=== PATIENT | male | born 1980 | race Caucasian/White ===

== ENCOUNTER 2017-01-03 16:48 | Emergency (ER) | payer OTHER ==
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
== END 2017-01-03 18:09 | disposition disaster alternative care site (69) ==
LOC: GMED 16:48
DX: S93.402A Sprain of unspecified ligament of left ankle, initial encounter (principal); V13.4XXA Pedal cycle driver injured in collision with car, pick-up truck or van in traffic accident, initial encounter; Y92.410 Unspecified street and highway as the place of occurrence of the external cause